=== PATIENT | female | born 2000 ===

== ENCOUNTER → 2025-09-19 | Outpatient (REF) | payer OTHER ==
[2025-09-19 17:12] LABS: PLATELET COUNT, AUTOMATED 318 10^3/uL (150-450)
[2025-09-19 17:37] LABS: FREE T4 1.19 NG/DL (0.89-1.76)
[2025-09-19 17:54] LABS: ALT/SGPT 23 U/L (7.0-40); AST/SGOT 24 U/L (<34); CALCIUM LEVEL 9.3 MG/DL (8.5-10.1); CARBON DIOXIDE LEVEL 25 MMOL/L (20-31); CHLORIDE LEVEL 105 MMOL/L (98-107); CHOLESTEROL LEVEL 233 MG/DL (<200); CHOLESTEROL RISK RATIO 4.47 (<5); CREATININE FOR GFR 0.75 MG/DL (0.55-1.30); GLOMERULAR FILTRATION RATE > 90.0 (>60); LDL CHOLESTEROL 151.1 MG/DL (<100); NON-HDL-C 180.9 MG/DL; POTASSIUM SERUM 4.2 MMOL/L (3.5-5.1); SODIUM LEVEL 140 MMOL/L (136-145); TRIGLYCERIDES LEVEL 149 MG/DL (<150)
[2025-09-19 17:58] LABS: ESTIMATED AVERAGE GLUCOSE 91.0 MG/DL (60-110)
== END ==
LOC: M LAB REF 16:19
PROVIDERS: ATTEND Student in an Organized Health Care Education/Training Program
DX: Z68.33 Body mass index [BMI] 33.0-33.9, adult (principal); R03.0 Elevated blood-pressure reading, without diagnosis of hypertension; Z83.3 Family history of diabetes mellitus

== ENCOUNTER → 2025-09-19 | Outpatient (REF) | payer OTHER | LOC: M LAB REF 12:19 | PROVIDERS: ATTEND Student in an Organized Health Care Education/Training Program | DX: R10.24 Suprapubic pain (principal) ==